=== PATIENT | female | born 1950 | race African-American/Black ===

== ENCOUNTER 2019-09-11 12:30 | Outpatient (CLI) | payer OTHER | END 2019-09-11 21:26 | disposition home or self-care (01) | LOC: RAD 12:30 | DX: M25.562 Pain in left knee (principal); M79.605 Pain in left leg; N95.1 Menopausal and female climacteric states ==

== ENCOUNTER 2019-11-05 10:07 | Outpatient (CLI) | payer OTHER | END 2019-11-05 19:10 | disposition home or self-care (01) | LOC: RAD 10:07 | DX: E55.9 Vitamin D deficiency, unspecified (principal); R74.8 Abnormal levels of other serum enzymes; N95.1 Menopausal and female climacteric states; N95.8 Other specified menopausal and perimenopausal disorders ==

== ENCOUNTER 2020-04-23 08:40 | Outpatient (CLI) | payer OTHER | END 2020-04-23 19:36 | disposition home or self-care (01) | LOC: INF 08:40 | PROVIDERS: ATTEND Internal Medicine | DX: Z23 Encounter for immunization (principal) | CPT/HCPCS: 96372 ==

== ENCOUNTER 2020-05-13 08:01 | Outpatient (CLI) | payer OTHER | END 2020-05-13 19:49 | disposition home or self-care (01) | LOC: INF 08:01 | PROVIDERS: ATTEND Internal Medicine | DX: Z23 Encounter for immunization (principal) | CPT/HCPCS: 96372 ==

== ENCOUNTER 2021-07-05 09:59 | Emergency (ER) | payer OTHER ==
[~2021-07-05] VITALS: Ht 144.8 cm; Wt 67.6 kg
[2021-07-05 10:00] VITALS: TEMP 99
[2021-07-05 11:18] LABS: PLATELET COUNT 259 K/uL (152-353)
[2021-07-05 11:22] LABS: POTASSIUM 4.6 mmol/L (3.6-5.2)
[2021-07-05 11:42] LABS: PARTIAL THROMBOPLASTIN TIME 23.8 SECONDS (24.5-33.6)
[2021-07-05 12:16] VITALS: BP 124/66
== END 2021-07-05 12:16 | disposition home or self-care (01) ==
LOC: ED 09:59
PROVIDERS: Hospitalist
DX: K59.09 Other constipation (principal); R11.2 Nausea with vomiting, unspecified; E86.0 Dehydration
CPT/HCPCS: 36415; 80053; 81000; 82550; 83690; 83880; 84484; 85027; 85610; 85730; 93005; 96360; 96374; 99284; J2405

== ENCOUNTER 2022-06-22 13:05 | Outpatient (CLI) | payer BC | END 2022-06-22 19:02 | disposition home or self-care (01) | LOC: MAMMO 13:05 | PROVIDERS: ATTEND Family Medicine | DX: Z12.31 Encounter for screening mammogram for malignant neoplasm of breast (principal) ==